=== PATIENT | male | born 1975 | race Caucasian/White ===

== ENCOUNTER → 2016-07-21 | Outpatient (CLI) | payer BC | LOC: US 12:48 | DX: M79.662 Pain in left lower leg (principal); R60.0 Localized edema | CPT/HCPCS: 93971 ==

== ENCOUNTER → 2021-06-28 | Outpatient (CLI) | payer BC, OTHER ==
[~2021-06-28] MED LIST: ALBUTEROL2.5 MG/3 M INH; DAYPRO PO; GABAPENTIN600 MG PO; LANSOPRAZOLE30 MG PO; PERCOCET 5-3251 EACH PO; PLAQUENIL 200200 MG PO; PREDNISONE5 MG PO; VENTOLIN HFA 66.7 GM INH; WAL-ZYR10 M1 PO; ZANAFLEX2 MG PO
== END ==
LOC: HEART 5 13:41
DX: R06.02 Shortness of breath (principal); R91.8 Other nonspecific abnormal finding of lung field
CPT/HCPCS: 71046; 94060; 94729